=== PATIENT | female | born 1980 | race Caucasian/White ===

== ENCOUNTER 2022-10-17 13:38 | Outpatient (CLI) | payer OTHER, BC, SELFPAY ==
--- NOTE | 2022-10-17 14:00 | CRLHL7_ITS ---
For Patients: As a result of the Cures Act, medical imaging exams and procedure reports are released immediately into your electronic medical record. You may view this report before your referring provider. If you have questions, please contact your health care provider. CT NECK WITH CONTRAST DATE: 10/17/2022 CLINICAL HISTORY: Patient with pain in mouth and tongue. TECHNIQUE: Standard helical CT image acquisition of the neck up to the skull base after bolus intravenous contrast enhancement. Multiplanar reconstructed images performed on a separate workstation. COMPARISON: None. FINDINGS: There is no evidence of abscess or masses in the neck. The airway is patent. There is no cervical lymphadenopathy. The visualized intracranial contents are unremarkable. The visualized lung apices are unremarkable. The thyroid gland is unremarkable. The cervical spine is unremarkable. IMPRESSION: No evidence of abscess or masses in the neck. Please note that all CT scans at this facility use dose modulation, iterative reconstruction, and/or weight-based dosing when appropriate to reduce radiation dose to as low as reasonably achievable. Dictated by: Sarah Aguilar MD @ 10/18/2022 06:30:12 (Electronically Signed)
== END 2022-10-17 13:39 | disposition home or self-care (01) ==
LOC: CT 13:39
PROVIDERS: PCP Family Medicine; Visit Provider Family Medicine
DX: K13.79 Other lesions of oral mucosa (principal)
CPT/HCPCS: 70491; Q9967

== ENCOUNTER 2023-01-03 13:58 | Outpatient (CLI) | payer OTHER, BC, SELFPAY ==
--- NOTE | 2023-01-03 14:00 | CRLHL7_ITS ---
For Patients: As a result of the Cures Act, medical imaging exams and procedure reports are released immediately into your electronic medical record. You may view this report before your referring provider. If you have questions, please contact your health care provider. BILATERAL DIGITAL SCREENING MAMMOGRAM WITH COMPUTER-AIDED DETECTION CLINICAL HISTORY: Routine screening exam. COMPARISON: 11/18/2021. TECHNIQUE: Digital mammogram in CC and MLO projections including computer-aided detection (CAD). BREAST COMPOSITION: Heterogeneously dense FINDINGS: RIGHT Breast: No suspicious findings LEFT Breast: Focal asymmetric density within the lower outer quadrant 5 cm from the nipple, retroareolar plane. IMPRESSION: LEFT breast asymmetry/mass. RECOMMENDATIONS: Additional mammographic views of the LEFT breast including 3D spot-compression CC/MLO. LEFT breast ultrasound may also be required. A member of the radiology staff will be contacting the patient to arrange for this additional study. BI-RADS Category 0: Incomplete: Need Additional Imaging Evaluation and/or Prior Mammograms for Comparison. Dictated by Favian Elkins MD @ 01/04/2023 10:25:08 AM JUANY/ford DW/Dictated by: Favian Elkins MD @ 01/04/2023 10:25:00 AM (Electronically Signed)
== END 2023-01-03 13:59 | disposition home or self-care (01) ==
LOC: MAMMO 13:59
PROVIDERS: PCP Family Medicine; Visit Provider Family Medicine
DX: Z12.31 Encounter for screening mammogram for malignant neoplasm of breast (principal)
CPT/HCPCS: 77063; 77067

== ENCOUNTER 2023-01-13 10:28 | Outpatient (CLI) | payer OTHER, BC, SELFPAY ==
--- NOTE | 2023-01-13 10:45 | CRLHL7_ITS ---
For Patients: As a result of the Cures Act, medical imaging exams and procedure reports are released immediately into your electronic medical record. You may view this report before your referring provider. If you have questions, please contact your health care provider. DIGITAL DIAGNOSTIC LEFT MAMMOGRAM USING TOMOSYNTHESIS AND COMPUTER-AIDED DETECTION LEFT BREAST ULTRASOUND CLINICAL HISTORY: LEFT breast mass/asymmetry. COMPARISON: 01/03/2023, 11/18/2021. TECHNIQUE: Digital LEFT mammogram in two projections. Tomosynthesis and CAD utilized. Real-time ultrasound imaging of LEFT breast with imaging documentation. BREAST COMPOSITION: The breast is heterogeneously dense, which may obscure small masses. FINDINGS: 3D spot compression CC/MLO LEFT breast mammogram images submitted. Decreased conspicuity of previously noted asymmetric density. No architectural distortion or solid mass. Targeted LEFT breast ultrasound performed at 5 o`clock 5 cm from the nipple. Normal fibroglandular tissue is present. No fibrocystic change or mass. IMPRESSION: No evidence of malignancy. RECOMMENDATIONS: Annual BILATERAL screening mammography. Results and recommendations discussed with the patient. BI-RADS Category 2: Benign A lay language report of this examination will be provided to the patient. Dictated by Favian Elkins MD @ 01/13/2023 11:25:35 AM jj/Dictated by: Favian Elkins MD @ 01/13/2023 11:25:00 AM (Electronically Signed)
--- NOTE | 2023-01-13 11:15 | CRLHL7_ITS ---
For Patients: As a result of the Cures Act, medical imaging exams and procedure reports are released immediately into your electronic medical record. You may view this report before your referring provider. If you have questions, please contact your health care provider. PLEASE SEE DIGITAL DIAGNOSTIC LEFT MAMMOGRAM PERFORMED SAME DAY [email or web address] [email or web address]/Dictated by: Favian Elkins MD @ 01/13/2023 11:25:00 AM (Electronically Signed)
== END 2023-01-13 10:29 | disposition home or self-care (01) ==
LOC: MAMMO 10:28
PROVIDERS: PCP Family Medicine; Visit Provider Family Medicine
DX: N63.20 Unspecified lump in the left breast, unspecified quadrant (principal); R92.8 Other abnormal and inconclusive findings on diagnostic imaging of breast
CPT/HCPCS: 76642; 77065; G0279

== ENCOUNTER 2023-02-06 15:18 | Outpatient (CLI) | payer OTHER, BC, SELFPAY | END 2023-02-06 15:19 | disposition home or self-care (01) | PROVIDERS: PCP Family Medicine; Visit Provider Family Medicine | DX: Z00.00 Encounter for general adult medical examination without abnormal findings (principal); E78.5 Hyperlipidemia, unspecified | CPT/HCPCS: 80048; 80061 ==

== ENCOUNTER 2024-01-09 12:54 | Outpatient (CLI) | payer OTHER, BC, SELFPAY ==
--- OUTSIDE RECORDS SUMMARY | 2024-01-09 12:56 | XMS_ITS | Clinical Summary ---
Author Organization [facility] & [facility] Address [place], [place] [address] Care Team Providers Care Prosthetic Assistant Name Role Phone [facility], [facility] Pro vider Allergies Active Allergy Reactions Criticality Noted Date Comments Erythromycin Nausea Only 07/01/2006 Medications Medication Sig Dispensed Refills Start Date End Date Status CHANTIX CONTINUING MONTH BOX 1 mg tabletIndications:To bacco abuse TAKE 1 TABLET BY MOUTH TWICE DAILY 60 tablet 5 09/12/2016 Active valACYclovir (VALTREX) 1 gram tabletIndications:Ge neralized anxiety disorder Take 1 tablet by mouth once daily. 90 tablet 3 04/20/2017 Active buPROPion (WELLBUTRIN XL) 300 mg Extended-Release tabletIndications:An xiety state,Major depressive disorder, recurrent episode, moderate (HC) TAKE 1 TABLET BY MOUTH EVERY DAY 90 tablet 1 03/28/2018 Active albuterol HFA 90 mcg/actuation inhalerIndications:B ronchitis with bronchospasm Inhale 2 Puffs by mouth every 4 hours if needed. 1 Inhaler 1 04/12/2018 Active FLUoxetine (PROZAC) 20 mg capsuleIndications:M oderate episode of recurrent major depressive disorder (HC) TAKE 1 CAPSULE BY MOUTH EVERY MORNING 90 capsule 07/09/2018 Active omeprazole (PRILOSEC) 40 mg Delayed-Release capsuleIndications:G astroesophageal reflux disease, esophagitis presence not specified TAKE 1 CAPSULE BY MOUTH EVERY DAY 90 capsule 03/31/2019 Active methylPREDNISolone (MEDROL, VICKY,) 4 mg tabletIndications:Ac atka bilateral low back pain without sciatica Take by mouth as instructed per packaging. 1 Package 08/10/2019 Active cyclobenzaprine (FLEXERIL) 5 mg tabletIndications:Ac atka bilateral low back pain without sciatica Take 1-2 tablets by mouth 3 times daily if needed for Muscle Spasm. 30 tablet 08/10/2019 Active Hospital, Clinic, or Other Facility Administered Medication Ordered Dose Route Frequency Start Date End Date Status levonorgestrel intrauterine device 1 Device (MIRENA)Indications:Encounter for IUD insertion 1 Device IU Q 5 YEARS 05/24/2018 Active Active Problems Problem Noted Date Diagnosed Date Viral pharyngitis 05/21/2018 ASCUS with positive high risk HPV cervical 10/07 Overview: 02/2006 ASCUS/HPV+. 06/30/06 LSIL 07/27/06 COLP JEM I 03/2012 ASCUS/HPV+ 11/08/12 NIL 01/14/14 NIL 10/07/16SCUS/HPV+ 08/24/15 NIL/HPV+ 12/15/16 COLP JME I 12/28/17 NIL/HPV negative Plan: Repeat cotesting in 3 years HSV (herpes simplex virus) infection 08/01/2009 Major depressive disorder, recurrent episode, mo derate 03/25/2008 Anxiety state, unspecified 07/01/2006 Resolved Problems Problem Noted Date Diagnosed Date Resolved Date Vaginal delivery 12/03/2013 01/20/2014 Supervision of other normal 06/01/2013 01/20/2014 Overview: Unplanned but happy. Anxiety and depression well controlled with Wellbutrin and Zoloft. Having a Girl GBBS positive with previous . We will treat with this . Supervision of other normal 03/04/2012 04/30/2013 Overview: Having a Girl! History of genital herpes - on Valtrex prophylactically History of labor. fibronectin negative 08/03/12 and 08/17/12. GBBS -positive. Tobacco use disorder 04/28/2009 014 ASCUS - high risk HPV 02/07/20062017 Cervical high risk HPV (jeannette n papillomavirus) test positive 01/15/2018 Overview: 2016 NIL pap; Provider plan yearly pap ASCUS with positive high risk HPV cervical 01/04/2018 Overview: 09/2016- colposcopy advised LUQ pain 01/04/2018 Immunizations Name Administration Dates Next Due AMB Influenza, IIV3 (Age >=3 years)(Flu Clinic Only) 04/20/2011,05/12/2008 Hepatitis B (Adult) 04/21/2000,10/14/1999,1999 Human Papilloma Virus Vaccine 02/02/2007, 007,08/04/2006 Influenza, IIV3 (Age >=3 years) 04/03/20 13,03/23/2012,04/19/2010, 006 Influenza, IIV4 04/20/2017,04/09/2015,04/14/2014 MMR 11/04/1993,09/07/1982 Td (Age >=7 Years) 03/01/2006 Tdap 09/27/2013,07/14/2010 Tuberculin (PPD) 03/07/2011, 0,04/19/2010, 009,05/25/2009,02/27/2006 Family History Medical History Relation Name Comments Cancer Father TESTICAL Asthma Maternal Grandfather Diabetes Maternal Grandfather Heart Disease Maternal Grandfather Arthritis Maternal Grandmother Asthma Maternal Grandmother COPD Heart Disease Maternal Grandmother Psychiatric illness Mother Anxiety Asthma Son 2 Relation Name Status Comments Father Alive Maternal Grandfather Alive Maternal Grandmother Alive Mother Alive Paternal Grandfather Paternal Grandmother Sister Alive X2 Son 1 Alive Son 2 Social History Tobacco Use Types Packs/Day Years Used Date Smoking Tobacco: Every Day Cigarettes Smokeless Tobacco: Never Tobacco Cessation:Ready to Q uit: Yes; Counseling Given: Yes Comments:has chantix at home Alcohol Use Standard Drinks/Week Comments Yes 3 (1 standard drink = 0.6 oz pur e alcohol) social PHQ-2 Answer Date Recorded PHQ-2 Score 2 04/23/2019 Sex and Gender Information Value Date Recorded Sex Assigned at Not on file Gender Identity Not on file Sexual Orientation Not on file Obstetrics History Para Term AB IAB SAB Ectopic Multiple Livin g Live Births 3 3 3 0 0 0 0 0 3 3 Date Outcome GA Total Labor Labor/2nd/3rd Weight Sex Type Anes PTL Jeannie A1 A5 Name Clin 2001 Term 38w 0d 2.92 kg (6 lb 7 oz) M VAGINA L VACU IV Meds Livin g Conno r Howel l Delivery Location:[facility] Comments: labor 2012 Term 38w 3d 2.58 kg (5 lb 11 oz) F Vag Livin g 8 9 [place] Delivery Location:[facility] Comments:System Genera darlene. Please review and update details. 2013 Term 37w 4d 2.83 kg (6 lb 4 oz) F Vag Epidur al N Livin g 8 9 [place] Last Filed Vital Signs Vital Sign Reading Time Taken Comments Blood Pressure 112/64 08/10/2019 2:19 PM SOLE SKIVER Pulse 94 08/10/2019 2:19 PM SOLE SKIVER Temperature 37.4 ??C (99.4 ??F) 08/10/2019 2:19 PM CS T Respiratory Rate 14 08/10/2019 2:19 PM SOLE SKIVER Oxygen Saturation 99% 08/10/2019 2:19 PM SOLE SKIVER Inhaled Oxygen Concentration - - Weight 72.1 kg (159 lb) 08/10/2019 2:19 PM SOLE SKIVER Height 154.9 cm (5' 1) 03/03/2019 11:58 AM CDT Body Mass Index 30.04 03/03/2019 11:58 AM CDT Plan of Treatment Health Maintenance Due Date Last Done Comments Hepatitis C screening for age 18-79 1999 BMI (ht and wt on same day) for age 18+ 03/03/2020 03/03/2019, 12/28/2018, 08/05/2018, Additional history exists Depression screening for age 12+ 04/17/2020 04/17/2019, 02/06/2018, 04/20/2017, Additional history exists COVID-19 vaccine series (2022- season) 2023 Tetanus booster 09/28/2023 09/27/2013, 11/2010, 03/01/2006 Influenza for age 9-49 03/10/2024 8 (Completed outside of [facility]), 04/20/2017, 04/09/2015 (Completed outside of [facility]), Additional history exists Pap test for age 21-65 02/06/2026 3, 02/06/2023, 09/16/2021, Additional history exists HIV for age 15-65 Completed 05/27/2013, 03/23/2012 Tdap Completed 09/27/2013, 07/14/2010 Pneumococcal series for age 6-64 Aged Out No longer eligible based on patient's age to complete this topic Procedures Procedure Name Priority Date/Time Associated Diagnosis Comments HPV THIN PREP Routine 02/06/2023 2:30 PM CDT ANTI HIV 1/2 Routine 05/27/2013 11:38 AM SOLE SKIVER Supervision of other normal from Last 3 Months or Most Recently Relevant to Health Maintenance Results * HPV HIGH RISK (02/06/2023 2:30 PM CDT) TYPE 16 Negative Negative 02/10/2023 1:25 PM CDT [facility] TYPE 18 Negative Negative 02/10/2023 1:25 PM CDT [facility] OTHER HIGH RISK TYPES Negative Negative 02/10/2023 1:25 PM CDT [facility] Other (Cervical/Vagina l) 02/06/2023 2:30 PM CDT 02/07/2023 5:57 PM CDT Narrative [facility] - 02/10/2023 1:25 PM CDT HPV types 16, 18, 31, 33, 35, 39, 45, 51, 52, 56, 58, 59, 66 and 68 DNA were undetectable or below the pre-set threshold. Methodology: Hermelinda Leonard 4800 HPV Test Favian Govea MD MICROBIOLOGY [facility] [address] [place] [address], * ANTI HIV 1/2 (05/27/2013 11:38 AM SOLE SKIVER) ANTI HIV 1/2 Non-reacti ve [facility] Blood specimen (specimen) BLOOD SPECIMEN / Unknown 05/27/2013 11:38 AM SOLE SKIVER 05/27/2013 11:29 AM SOLE SKIVER Favian Govea MD SEND OUTS [facility] INTERNAL ZIP [id number] [place] [address] from Last 3 Months or Most Recently Relevant to Health Maintenance Advance Directives * Full Code (Latest Code Status on File) Date Activated Date Inactivated Comments 12/01/2013 6:03 PM 12/03/2013 2:51 PM Care Teams Prosthetic Assistant Relationship Specialty Start Date End Date Clinic, [facility] [address] [place] [address] PCP - General 03/09/21
--- NOTE | 2024-01-09 13:00 | CRLHL7_ITS ---
For Patients: As a result of the Century Cures Act, medical imaging exams and procedure reports are released immediately into your electronic medical record. You may view this report before your referring provider. If you have questions, please contact your health care provider. BILATERAL SCREENING MAMMOGRAM WITH COMPUTER-AIDED DETECTION AND TOMOSYNTHESIS TECHNIQUE: CC and MLO views were obtained. These mammographic images have been obtained using full-field digital technique. These mammographic images were interpreted with the benefit of computer-aided detection. Breast Tomosynthesis was used in this interpretation. COMPARISON FILM: 01/03/23, 01/13/23, 11/18/21. FINDINGS: The breasts are heterogeneously dense, which may obscure small masses IMPRESSION: There is no radiographic evidence for malignancy. ASSESSMENT: BI-RADS Category 1: Negative RECOMMENDATION: Routine screening mammogram in 1 year. A lay language report of this examination will be provided to the patient. Favian Elkins M.D. Diagnostic Radiologist [email or web address] Transcribed: 1:12 p.[email or web address] scott/Dictated by: Favian Elkins MD @ 01/12/2024 11:37:00 AM (Electronically Signed)
== END 2024-01-09 12:55 | disposition home or self-care (01) ==
LOC: MAMMO 12:55
PROVIDERS: PCP Family Medicine; Visit Provider Family Medicine
DX: Z12.31 Encounter for screening mammogram for malignant neoplasm of breast (principal); R92.2 Inconclusive mammogram
CPT/HCPCS: 77063; 77067

== ENCOUNTER 2024-03-21 09:19 | Outpatient (CLI) | payer OTHER, SELFPAY ==
--- OUTSIDE RECORDS SUMMARY | 2024-03-21 09:21 | XMS_ITS | Clinical Summary ---
Author Organization [facility] Address [place], [place] [address] Care Team Providers Care Underwriting Internship Name Role Phone [facility] Primary [facility] Pro vider Allergies Active Allergy [...] Active methylPREDNISolone (MEDROL, VICKY,) 4 mg tabletIndications:Ac [place] bilateral low back pain without sciatica Take by mouth as instructed per packaging. 1 Package 08/10/2019 Active cyclobenzaprine (FLEXERIL) 5 mg tabletIndications:Ac [place] bilateral low back pain without sciatica Take [...] with positive high risk HPV cervical 10/07 Overview (01/17/2018): 02/2006 ASCUS/HPV+. 06/30/06 LSIL 07/27/06 COLP JEM I 03/2012 ASCUS/HPV+ 11/08/12 NIL 01/14/14 NIL 10/07/16SCUS/HPV+ 08/24/15 NIL/HPV+ 12/15/16 COLP JEM I 12/28/17 NIL/HPV negative Plan: Repeat cotesting in 3 years HSV (herpes simplex virus) infection 08/01/2009 Major depressive disorder, recurrent episode, mo derate 03/25/2008 Anxiety state, unspecified 07/01/2006 Resolved Problems Problem Noted Date Diagnosed Date Resolved Date Vaginal delivery 12/03/2013 01/20/2014 Supervision of other normal 06/01/2013 01/20/2014 Overview (11/19/2013): Unplanned but happy. Anxiety and depression well controlled with Wellbutrin and Zoloft. Having a Girl GBBS positive with previous . We will treat with this . Supervision of other normal 03/04/2012 04/30/2013 Overview (09/15/2012): Having a Girl! History of genital herpes - on Valtrex prophylactically History of labor. fibronectin negative 08/03/12 and 08/17/12. GBBS -positive. Tobacco use disorder 04/28/2009 014 ASCUS - high risk HPV 02/07/20062017 Cervical high risk HPV (jeannette n papillomavirus) test positive 01/15/2018 Overview (09/03/2015): 2016 NIL pap; Provider plan yearly pap ASCUS with positive high risk HPV cervical 01/04/2018 Overview (10/20/2016): 09/2016- colposcopy advised LUQ pain 01/04/2018 Immunizations [...] ie [place] Delivery Location:[facility] Comments:System Genera dralene. Please review and update details. 2013 Term 37w 4d 2.83 kg (6 lb 4 oz) F Vag Epidur al N Livin g 8 9 [place] Last Filed Vital Signs Vital Sign Reading Time Taken Comments Blood Pressure 112/64 08/10/2019 2:19 PM FUNCTIONAL CONSULTANT Pulse 94 08/10/2019 2:19 PM FUNCTIONAL CONSULTANT Temperature 37.4 ??C (99.4 ??F) 08/10/2019 2:19 PM CS T Respiratory Rate 14 08/10/2019 2:19 PM FUNCTIONAL CONSULTANT Oxygen Saturation 99% 08/10/2019 2:19 PM FUNCTIONAL CONSULTANT Inhaled Oxygen Concentration - - Weight 72.1 kg (159 lb) 08/10/2019 2:19 PM FUNCTIONAL CONSULTANT Height 154.9 cm (5' 1) 03/03/2019 11:58 AM CDT Body Mass Index 30.04 03/03/2019 11:58 AM CDT Plan of Treatment Health Maintenance Due Date Last Done Comments Hepatitis C screening for age 18-79 1999 BMI (ht and wt on same day) for age 18+ 03/03/2020 03/03/2019, 12/28/2018, 08/05/2018, Additional history exists Depression screening for age 12+ 04/17/2020 04/17/2019, 02/06/2018, 04/20/2017, Additional history exists Tetanus booster 09/28/2023 09/27/2013, 11/2010, 03/01/2006 COVID-19 vaccine series ( season) 2024 Influenza for age 9-49 03/10/2024 8 (Completed outside of [facility]), 04/20/2017, 04/09/2015 (Completed outside of [facility]), Additional history exists Pap test for age [...] ANTI HIV 1/2 Routine 05/27/2013 11:38 AM FUNCTIONAL CONSULTANT Supervision of other normal from Last 3 Months or Most Recently Relevant to Health Maintenance Results * HPV HIGH RISK (02/06/2023 2:30 PM CDT) TYPE 16 Negative Negative 02/10/2023 1:25 PM CDT [facility] TYPE 18 Negative Negative 02/10/2023 1:25 PM CDT [facility] OTHER HIGH RISK TYPES Negative Negative 02/10/2023 1:25 PM CDT [facility] Other (Cervical/Vagina l) 02/06/2023 2:30 PM CDT 02/07/2023 5:57 PM CDT Narrative [facility] - 02/10/2023 1:25 PM CDT HPV types 16, 18, 31, 33, 35, 39, 45, 51, 52, 56, 58, 59, 66 and 68 DNA were undetectable or below the pre-set threshold. Methodology: Hermelinda Leonard 4800 HPV Test Favian Govea MD [facility]BIOLOGY [facility] [address] [place] [address], [place] * ANTI HIV 1/2 (05/27/2013 11:38 AM FUNCTIONAL CONSULTANT) ANTI HIV 1/2 Non-reacti ve [facility] Blood specimen (specimen) BLOOD SPECIMEN / Unknown 05/27/2013 11:38 AM FUNCTIONAL CONSULTANT 05/27/2013 11:29 AM FUNCTIONAL CONSULTANT Favian Govea MD SEND OUTS [facility] [place]NAL ZIP [phone] [place] [address] from Last 3 Months or Most Recently Relevant to Health Maintenance Advance Directives * Full Code (Latest Code Status on File) Date Activated Date Inactivated Comments 12/01/2013 6:03 PM 12/03/2013 2:51 PM Care Teams Underwriting Internship Relationship Specialty Start Date End Date Clinic, [facility] [address] [place] [address] PCP - General 03/09/21
== END 2024-03-21 09:20 | disposition home or self-care (01) ==
PROVIDERS: PCP Family Medicine; Visit Provider Family Medicine
DX: E78.5 Hyperlipidemia, unspecified (principal)
CPT/HCPCS: 80048; 80061

== ENCOUNTER 2025-04-10 09:03 | Outpatient (CLI) | payer OTHER, BC, SELFPAY | END 2025-04-10 09:04 | disposition home or self-care (01) | PROVIDERS: PCP Family Medicine; Visit Provider Family Medicine | DX: E78.2 Mixed hyperlipidemia (principal) | CPT/HCPCS: 80048; 80061 ==

== ENCOUNTER 2025-05-26 09:08 | Outpatient (CLI) | payer OTHER, BC, SELFPAY ==
--- NOTE | 2025-05-26 09:15 | CRLHL7_ITS ---
For Patients: As a result of the Century Cures Act, medical imaging exams and procedure reports are released immediately into your electronic medical record. You may view this report before your referring provider. If you have questions, please contact your health care provider. INDICATION: BILATERAL SCREENING MAMMOGRAM, ASYMPTOMATIC 44Y/O FEMALE COMPARISON: 01/09/2024, 01/13/2023, 01/03/2023 TECHNIQUE: Digital mammogram in CC and MLO projections including computer-aided detection (CAD) and tomosynthesis. BREAST COMPOSITION: The breasts are heterogeneously dense, which may obscure small masses. FINDINGS: No suspicious findings. ASSESSMENT: BI-RADS 1 Negative RECOMMENDATION: Annual screening mammogram. A lay language report of this examination will be provided to the patient. Dictated by: Favian Elkins MD @ 05/26/2025 11:11:18 (Electronically Signed)
== END 2025-05-26 09:09 | disposition home or self-care (01) ==
LOC: MAMMO 09:09
PROVIDERS: PCP Family Medicine
DX: Z12.31 Encounter for screening mammogram for malignant neoplasm of breast (principal); R92.333 Mammographic heterogeneous density, bilateral breasts
CPT/HCPCS: 77063; 77067